=== PATIENT | female | born 1995 | race Caucasian/White ===

== ENCOUNTER 2018-04-07 19:51 | Emergency (ER) | payer MEDICAID ==
[~2018-04-07] VITALS: Ht 172.7 cm; Wt 75.5 kg
[~2018-04-07 19:51] MED LIST: CIPR-230 PO; IBUP-1986 PO; METH500T PO; NITR100C6 PO; PHEN-716 PO
[2018-04-07 20:35] LABS: CLARITY,URINE SLIGHTLY CLOUDY (Clear); COLOR,URINE YELLOW (Yellow); GLUCOSE, URINE NEGATIVE (Neg); KETONES,URINE TRACE mg/dl (Neg); LEUKOCYTE ESTERASE ,URINE TRACE (Neg); NITRITES, URINE NEGATIVE (Neg); OCCULT BLOOD,URINE LARGE (Neg); PROTEIN,URINE NEGATIVE (Neg); UROBILINOGEN,URINE 0.2 E.U/dL (0.2-1.0)
[2018-04-07 20:37] LABS: URINE HCG NEGATIVE (NEG)
[2018-04-07 20:52] LABS: UA COLLECTION TYPE CLN CATCH MIDSTREAM
[2018-04-07 20:53] LABS: BACTERIA,URINE 1+ /HPF (Neg); MUCUS STRANDS MANY /LPF (Neg); SQUAMOUS EPITHELIAL CELL,UR MANY /LPF (FEW); TRANSITIONAL EPI CELLS,URINE FEW /HPF
[2018-04-07] MEDS ORDERED: ondansetron 4mg rapidly disintigrating tab PO ONE (20:55)
[2018-04-07 21:17] LABS: BASOPHILS % (AUTO) 0.2 % (0-1); EOSINOPHILS % (AUTO) 0 % (0-6); HEMATOCRIT 42.4 % (35.0-45.0); HEMOGLOBIN 14.4 g/dl (12.0-16.0); LYMPHOCYTES # (AUTO) 0.6 X10'3 (1.1-4.8); LYMPHOCYTES % (AUTO) 5.4 % (21-51); MEAN CORPUSCULAR HEMOGLOBIN 31.4 PG (27.0-31.0); MEAN CORPUSCULAR HGB CONC 33.9 % (33.0-36.5); MEAN CORPUSCULAR VOLUME 92.8 FL (78-98); MEAN PLATELET VOLUME 9.6 FL (7.4-10.4); MONOCYTES # (AUTO) 0.4 X10'3 (0-0.9); MONOCYTES % (AUTO) 3.8 % (2-12); NEUTROPHILS # (AUTO) 10.4 X10'3 (1.8-7.7); NEUTROPHILS % (AUTO) 90.6 % (42-75); PLATELET COUNT 331 X10'3 (140-440); RED BLOOD COUNT 4.57 X10'6 (4.20-5.60); WHITE BLOOD COUNT 11.5 X10'3 (4.5-11.0)
[2018-04-07 21:31] VITALS: BP 98/61
[2018-04-07 21:41] LABS: ALANINE AMINOTRANSFERASE 37 U/L (12-78); ALBUMIN 4.1 G/DL (3.4-5.0); ALKALINE PHOSPHATASE 59 IU/L (46-116); ANION GAP 12 (8-16); ASPARTATE AMINO TRANSFERASE 17 U/L (10-37); BILIRUBIN,TOTAL 0.7 MG/DL (0.1-1.0); BLOOD UREA NITROGEN 14 MG/DL (7-18); BUN/CREATININE RATIO 15.1 (6.6-38.0); CALCIUM 9.3 MG/DL (8.5-10.1); CHLORIDE 99 MMOL/L (99-107); CREATININE 0.93 MG/DL (0.40-0.90); GLUCOSE 106 MG/DL (70-104); LIPASE 91 U/L (73-393); POTASSIUM 3.4 MMOL/L (3.5-5.1); SODIUM 137 MMOL/L (135-145); TOTAL CARBON DIOXIDE 25.6 MMOL/L (24-32); TOTAL PROTEIN 8.1 G/DL (6.4-8.2); eGFR 75 ML/MIN
[2018-04-07 21:45] LABS: CLARITY,URINE SLIGHTLY CLOUDY (Clear); COLOR,URINE YELLOW (Yellow); GLUCOSE, URINE NEGATIVE (Neg); KETONES,URINE NEGATIVE (Neg); LEUKOCYTE ESTERASE ,URINE NEGATIVE (Neg); NITRITES, URINE NEGATIVE (Neg); OCCULT BLOOD,URINE LARGE (Neg); PROTEIN,URINE TRACE mg/dl (Neg); UROBILINOGEN,URINE 0.2 E.U/dL (0.2-1.0)
[2018-04-07 21:51] LABS: PROTHROMBIN TIME 10.5 SECONDS (9.0-12.0)
[2018-04-07 21:58] LABS: UA COLLECTION TYPE CLN CATCH MIDSTREAM
[2018-04-07] MEDS ORDERED: ONDA4TAB9 SL (21:59)
[2018-04-07 22:00] LABS: BACTERIA,URINE FEW /HPF (Neg); MUCUS STRANDS MODERATE /LPF (Neg); SQUAMOUS EPITHELIAL CELL,UR FEW /LPF (FEW); TRANSITIONAL EPI CELLS,URINE FEW /HPF; WBC,URINE 0-4 /HPF (0-4)
== END 2018-04-07 22:31 | disposition home or self-care (01) ==
LOC: ER 19:53
DX: K52.9 Noninfective gastroenteritis and colitis, unspecified (principal); R30.0 Dysuria; Z88.6 Allergy status to analgesic agent; Z88.2 Allergy status to sulfonamides; Z87.440 Personal history of urinary (tract) infections; Z87.442 Personal history of urinary calculi
CPT/HCPCS: 36415; 80053; 81001; 81025; 83690; 85025; 85610; 99284

== ENCOUNTER 2018-10-19 14:47 | Emergency (ER) | payer MEDICAID ==
[~2018-10-19] VITALS: Ht 172.7 cm; Wt 65.4 kg
[2018-10-19 14:50] VITALS: BP 117/77
[2018-10-19] MEDS ORDERED: BENZ-16 PO (15:18)
[2018-10-19] MEDS ORDERED: ONDA8TAB6 PO (15:18)
[2018-10-19] MEDS ORDERED: PANT-47 PO (15:18)
[2018-10-19] MEDS ORDERED: benzonatate 100mg capsule PO ONE (15:20)
[2018-10-19] MEDS ORDERED: ibuprofen tablet 400 MG TABLET PO ONE (15:20)
[2018-10-19] MEDS ORDERED: famotidine 20mg tablet PO ONE (15:20)
[2018-10-19] MEDS ORDERED: mag hydrox/Alum hydrox/simeth 30ml oral suspension PO ONE (15:20)
--- NOTE | 2018-10-19 15:21 | NUR ---
Pt additionally complains of chronic problems with GERD to MD.
[2018-10-21] MEDS ORDERED: LIDO700A32 TP (13:52)
== END 2018-10-19 15:35 | disposition home or self-care (01) ==
LOC: ER 14:48
DX: R07.81 Pleurodynia (principal); R05 Cough; R09.89 Other specified symptoms and signs involving the circulatory and respiratory systems; R11.0 Nausea; K21.9 Gastro-esophageal reflux disease without esophagitis; F12.90 Cannabis use, unspecified, uncomplicated; Z87.442 Personal history of urinary calculi; Z88.5 Allergy status to narcotic agent; Z88.2 Allergy status to sulfonamides; Z79.899 Other long term (current) drug therapy
CPT/HCPCS: 99284

== ENCOUNTER 2018-10-19 20:51 | Emergency (ER) | payer MEDICAID ==
[~2018-10-19] VITALS: Ht 172.7 cm; Wt 60.8 kg
[~2018-10-19 20:51] MED LIST changes: +BENZ-16 PO; +ONDA8TAB6 PO; +PANT-47 PO
[2018-10-19 21:09] VITALS: BP 118/74
[2018-10-21] MEDS ORDERED: LIDO700A32 TP (13:52)
== END 2018-10-19 21:30 | disposition left against medical advice (07) ==
LOC: ER 20:52
DX: R07.81 Pleurodynia (principal); Z53.21 Procedure and treatment not carried out due to patient leaving prior to being seen by health care provider; Z79.899 Other long term (current) drug therapy; Z88.2 Allergy status to sulfonamides; Z88.5 Allergy status to narcotic agent

== ENCOUNTER 2019-01-24 18:15 | Emergency (ER) | payer MEDICAID ==
[~2019-01-24] VITALS: Ht 172.7 cm; Wt 63.6 kg
[~2019-01-24 18:15] MED LIST changes: -BENZ-16 PO; +LIDO700A32 TP
[2019-01-24] MEDS ORDERED: AMOX-422 PO (19:28)
[2019-01-24 19:40] VITALS: BP 106/57
== END 2019-01-24 19:42 | disposition home or self-care (01) ==
LOC: ER 18:16
DX: J03.90 Acute tonsillitis, unspecified (principal); F12.90 Cannabis use, unspecified, uncomplicated; F10.99 Alcohol use, unspecified with unspecified alcohol-induced disorder; Z87.442 Personal history of urinary calculi; Z88.5 Allergy status to narcotic agent; Z88.2 Allergy status to sulfonamides; Z79.899 Other long term (current) drug therapy; Y90.9 Presence of alcohol in blood, level not specified
CPT/HCPCS: 99283

== ENCOUNTER 2019-01-26 09:20 | Emergency (ER) | payer MEDICAID ==
[~2019-01-26] VITALS: Ht 172.7 cm; Wt 62.5 kg
[~2019-01-26 09:20] MED LIST changes: +AMOX-422 PO
[2019-01-26 09:42] VITALS: BP 112/66
[2019-01-26] MEDS ORDERED: LIDO20SO16 PO (10:39)
== END 2019-01-26 10:47 | disposition home or self-care (01) ==
LOC: ER 09:21
DX: J02.0 Streptococcal pharyngitis (principal); B95.5 Unspecified streptococcus as the cause of diseases classified elsewhere; R59.0 Localized enlarged lymph nodes; F12.90 Cannabis use, unspecified, uncomplicated; F10.99 Alcohol use, unspecified with unspecified alcohol-induced disorder; Z87.442 Personal history of urinary calculi; Z88.5 Allergy status to narcotic agent; Z88.2 Allergy status to sulfonamides; Z79.899 Other long term (current) drug therapy; Y90.9 Presence of alcohol in blood, level not specified
CPT/HCPCS: 99283

== ENCOUNTER 2019-04-04 06:13 | Emergency (ER) | payer MEDICAID ==
[~2019-04-04] VITALS: Ht 172.7 cm; Wt 61.4 kg
[~2019-04-04 06:13] MED LIST changes: -AMOX-422 PO; +LIDO20SO16 PO
[2019-04-04 06:17] VITALS: BP 105/62
[2019-04-04 06:55] LABS: CLARITY,URINE SLIGHTLY CLOUDY (Clear); GLUCOSE, URINE NEGATIVE (Neg); KETONES,URINE NEGATIVE (Neg); LEUKOCYTE ESTERASE ,URINE MODERATE (Neg); NITRITES, URINE NEGATIVE (Neg); OCCULT BLOOD,URINE LARGE (Neg); PH,URINE 6.5 (4.8-8.0); PROTEIN,URINE NEGATIVE (Neg); UROBILINOGEN,URINE 0.2 E.U/dL (0.2-1.0)
[2019-04-04 06:56] LABS: URINE HCG NEGATIVE (NEG)
[2019-04-04 06:57] LABS: UA COLLECTION TYPE CLN CATCH MIDSTREAM
[2019-04-04 06:58] LABS: COLOR,URINE PINK (Yellow)
[2019-04-04] MEDS ORDERED: NITR100C6 PO (07:00)
[2019-04-04] MEDS ORDERED: nitrofuran/nitrofuran macrocrysal 100 MG capsule PO ONE (07:00)
[2019-04-04] MEDS ORDERED: ibuprofen tablet 400 MG TABLET PO ONE (07:00)
[2019-04-04 07:07] LABS: BACTERIA,URINE 1+ /HPF (Neg); MUCUS STRANDS NONE SEEN /LPF (Neg); RBC,URINE 20-50 /HPF (0-2); SQUAMOUS EPITHELIAL CELL,UR FEW /LPF (FEW); WBC CLUMPS,URINE FEW /HPF (NEGATIVE); WBC,URINE 50-100 /HPF (0-4)
[2019-04-04] MEDS ORDERED: PHEN-786 PO (07:29)
== END 2019-04-04 07:38 | disposition home or self-care (01) ==
LOC: ER 06:14
DX: N39.0 Urinary tract infection, site not specified (principal); F12.90 Cannabis use, unspecified, uncomplicated; Z87.442 Personal history of urinary calculi; Z72.89 Other problems related to lifestyle; Z88.2 Allergy status to sulfonamides; Z88.5 Allergy status to narcotic agent
CPT/HCPCS: 81001; 81025; 87077; 87088; 87186; 99283